=== PATIENT | female | born 1985 | race Caucasian/White ===

== ENCOUNTER 2023-12-26 17:12 | Outpatient (CLI) | payer MEDICAID, SELFPAY | END 2023-12-26 17:13 | disposition home or self-care (01) | PROVIDERS: PCP Student in an Organized Health Care Education/Training Program; Visit Provider Nurse Practitioner Family | DX: R25.1 Tremor, unspecified (principal) | CPT/HCPCS: 84443 ==

== ENCOUNTER 2024-06-13 13:00 | Outpatient (RCR) | payer MEDICAID, SELFPAY ==
--- NOTE | 2024-04-16 16:40 | PT.OPEX ---
Please review and sign the attached PT evaluation. Thank you. PT [place] [facility] PT [facility] Outpatient Eval Start: 04/04/24 10:38 Freq: Status: Active Protocol: Document 04/16/24 14:49 TLQ (Rec: 04/16/24 16:32 TLQ [id number]) E-signed By Whit Clark DPT Physical Therapy Outpatient Evaluation Insurance Information Recert Due Date 07/15/24 Insurance Name Medicaid,[facility] Insurance Information/Comments [facility] Medicaid Plan Medical Diagnosis Sprain of other ligament of left ankle, initial encounter S93.492A Other fracture of upper and lower end of left fibular, initial encounter for closed fracture S82.832A Treating Diagnosis Impaired L ankle ROM M25.672 Pain in L ankle M25.572 Abnormal gait R26.9 Muscle weakness M62.81 Imaging Report Information Initial x-rays of L ankle completed at [facility] on 03/01/24 Follow-up x-rays of L ankle completed at [facility] on 04/04/24 with the following impression per provider documentation: Today's images show a stable far distal fibular avulsion sprain with increased radiolucency through this transverse fracture. Fracture gap measures approximately 2 mm. No displacement. Ankle mortise intact and reduced. Soft tissue swelling noted laterally. Referring MD Luciano Chambers PA-C Subjective Subjective Ariadna states she was walking down the street on 02/29/24, stepped on a drain and twisted and fell on her ankle. She was in walking boot up until 04/04/24 when she was transitioned to a tri-lock ankle brace. She states she is able to stand and walk on her ankle with the brace on for a bout 5 minutes before it starts to ache, improves if she sits down. Has been icing about 2x/week for 20 minutes at a time, ankle feels better after. Denies difficulty with stairs. Denies decreased quality of sleep. Would like to know when she can get back to going for walks. Prior to her injury she was walking for about 30 hours a day. 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 PMHx: metabolic syndrome, mixed hyperlipidemia, hx of substance abuse, asthma, mental health (depression, bipolar affective disorder) Pain Comments at best: 1/10 at worst: 3/10 location: lateral L ankle quality: ache alleviating factors: rest, ice aggravating factors: weightbearing Date of Last Physician Visit 04/04/24 Date of Next Physician Visit 05/16/24 Current Work Status Unemployed Precautions Treatment Precautions/Contraindications Avulsion sprain, date of injury: 02/29/24 ROM as tolerated Therapy Limitations/Systems Review Not Limited Objective Other/Pertinent Objective RANGE OF MOTION - ANKLE (L) dorsiflexion: 0 degrees plantarflexion: 50 degrees inversion: 15 degrees, lateral ankle pain eversion: 5 degrees STRENGTH dorsiflexion: fair activation against manual resistance plantarflexion: fair activation against manual resistance inversion: NT d/t healing fracture eversion: NT d/t healing fracture PALPATION tender at L distal fibula JOINT MOBILITY specific joint play not assessed d/t healing fracture CIRCUMFERENCE figure 8: 58 cm, edema around L lateral malleolus GAIT antalgic, decreased stance on L tri-lock ankle brace donned with shoes Functional Test Performed & Score Foot and Ankle Ability Measure (FAAM) ADL subscale: 57/84, 68% Patient perceived level of function: 70% Assessment Assessment/Impression Ariadna is a 38-year-old female who presents to physical therapy following a closed fracture of the left distal fibula on 02/29/24. Patient is being followed by orthopedics, most recent visit on 04/04/24 where follow-up x-rays were completed and indicated routine healing. She was initially ambulating with a CAM boot, progressed to Tri- Lock ankle brace with shoes as of 04/04/24. She reports ability to walk for up to 5 minutes prior to onset of soreness, she was observed to ambulate in clinic today with an antalgic pattern with decreased stance on the L. Today's examinations indicated restrictions in ankle AROM in addition to strength deficits ; strength assessments were not performed for inversion/ eversion today due to location of healing fracture. Mild edema observed around the lateral malleolus, encouraged patient to increase icing frequency to at least 1x/day to decrease swelling. Patient inquired about returning to walking for exercise, I advised her to avoid walking on uneven surfaces at this time, she may slowly progress walking on stable surfaces with Tri-Lock brace donned letting symptoms be her guide for progression of duration - she verbalized understanding. All examination findings were reviewed with the patient today. Discussed benefits and goals of physical therapy; patient verbalized agreement with POC. Ariadna was instructed through an initial HEP to address mobility deficits and progress WB as tolerated. Skilled physical therapy is medically appropriate to address strength and ROM deficits to improve tolerance to gait and weightbearing activities as patient's fracture continues to heal. Primary Functional Limitations L ankle pain, L ankle ROM, ankle weakness, antalgic gait, impaired balance Plan of Care Rehabilitation Potential Good Physical Therapy Goals In 4 visits: - S. will demonstrate improved gait mechanics to ambulate with a non-antalgic pattern. - S. will report ability to walk for up to 10 minutes prior to symptom onset to indicate improved tolerance to WB activities. - S. will adhere to her HEP in order to progress skilled PT interventions. In 10-12 visits: - FAAM ADL subscale score will improve to 65/84 (MCID 8 points) to indicate functional improvements in L ankle tolerance to ADL's. - S. will report ability to walk for 30 minutes prior to symptom onset to return to PLOF. - L ankle AROM will improve to be WFL in order to ambulate and navigate uneven surfaces without pain or compensation. - S. will have good adherence to her HEP in order to manage symptoms outside of formal PT. Treatment Plan/Direct Interventions Electrical Stimulation,Gait Training,Ice/Cold/ Vasopneumatic,Manual Therapy, Neuromuscular Re-ed,Orthotics/ Braces,Self-Care/Home Management,Therapeutic Activities,Therapeutic Exercises Frequency/Duration 1x/week for up to 12 weeks Patient Will Be Discharged From Therapy Completion of LTG(s),Skills Plateau,Independent w/HEP, Independently Progressing Evaluation Billing Untimed Code Treatment Minutes 25 Complexity Low Certification Information Initial Certification Date 04/16/24 Ending Certification Date 07/15/24 Provider Signature Required Yes Provider Signature Shows Agreement With POC & Medical Necessity Physician NPI Number Write NPI# Here Physician Comment/Change : Physician Signature & Date Requested Please Sign/Date Here
== END 2024-09-01 11:41 | disposition home or self-care (01) ==
PROVIDERS: PCP Student in an Organized Health Care Education/Training Program; Visit Provider Physician Assistant Surgical
DX: S93.492A Sprain of other ligament of left ankle, initial encounter (principal); S82.832A Other fracture of upper and lower end of left fibula, initial encounter for closed fracture; M25.572 Pain in left ankle and joints of left foot; R26.9 Unspecified abnormalities of gait and mobility; M62.81 Muscle weakness (generalized); Z74.09 Other reduced mobility; Z51.89 Encounter for other specified aftercare
CPT/HCPCS: 97110; 97140; 97161